=== PATIENT | male | born 1950 | race Caucasian/White ===

== ENCOUNTER → 2024-01-19 06:54 | Outpatient (REF) | payer MEDICARE, OTHER, SELFPAY | LOC: HWRCS 06:54 | PROVIDERS: ATTENDING PHYSICIAN Internal Medicine Cardiovascular Disease | DX: I48.0 Paroxysmal atrial fibrillation (principal); I34.0 Nonrheumatic mitral (valve) insufficiency | CPT/HCPCS: 93306 ==

== ENCOUNTER → 2024-12-26 11:05 | Outpatient (REF) | payer MEDICARE, OTHER, SELFPAY | LOC: HWRAD 11:05 | PROVIDERS: ATTENDING PHYSICIAN Urology | DX: N41.0 Acute prostatitis (principal); N40.1 Benign prostatic hyperplasia with lower urinary tract symptoms | CPT/HCPCS: 76770 ==

== ENCOUNTER → 2025-01-16 10:20 | Outpatient (REF) | payer MEDICARE, OTHER, SELFPAY | LOC: RCS 10:20 | PROVIDERS: ATTENDING PHYSICIAN Internal Medicine Cardiovascular Disease | DX: I48.0 Paroxysmal atrial fibrillation (principal); I34.0 Nonrheumatic mitral (valve) insufficiency | CPT/HCPCS: 93306 ==